=== PATIENT | female | born 1965 | race Two or more races ===

== ENCOUNTER 2023-02-04 19:05 | Emergency (ER) | payer OTHER ==
[~2023-02-04] VITALS: Ht 157.5 cm; Wt 67.0 kg
[2023-02-04 23:09] VITALS: BP 136/89
[2023-02-05] MEDS ORDERED: ACETAMINOPHEN 325 MG TAB PO ONE
== END 2023-02-05 01:44 | disposition home or self-care (01) ==
LOC: ER 19:05
DX: M25.562 Pain in left knee (principal); F17.210 Nicotine dependence, cigarettes, uncomplicated; E11.9 Type 2 diabetes mellitus without complications; I10 Essential (primary) hypertension; W18.00XA Striking against unspecified object with subsequent fall, initial encounter; Y93.89 Activity, other specified; Y92.89 Other specified places as the place of occurrence of the external cause; Y99.8 Other external cause status
CPT/HCPCS: 73562